=== PATIENT | female | born 1990 | race American Indian/Alaskan Native ===

== ENCOUNTER 2021-05-09 09:40 | Emergency (ER) | payer OTHER ==
[2021-05-09 10:08] VITALS: BP 142/81
--- NOTE | 2021-05-09 10:35 | Emergency Department Report ---
ED Female HPI - General Chief complaint: Vaginal Bleeding Stated complaint: .BLEEDING + TEST Time Seen by Provider: 05/09/21 10:17 Source: patient Mode of arrival: Ambulatory Limitations: No Limitations - History of Present Illness Initial comments: Patient presents with vaginal bleeding. She states that her last menstrual cycle was 26 March. That was normal menstrual cycle for her. She states that she did 3 test at home because she was late and they were all 3+. This morning she woke up with some suprapubic discomfort and some brown vaginal discharge. 1 hour later, she had more severe suprapubic discomfort as well as vaginal bleeding. She decided to come here for evaluation. She has been one time before. This would make her a . She did not have any problems or complications with her first . She did not require RhoGam for her first . Pain is only in the suprapubic area. It is not aggravated or alleviated by anything that she is determined. She has never had PID. She has never had a tubal . She does not have an IUD in place. - Related Data Allergies Allergy/AdvReac Type Severity Reaction Status Date / Time No Known Allergies Allergy Verified 05/09/21 10:05 ED Review of Systems ROS: Stated complaint: .BLEEDING + TEST Other details as noted in HPI Comment: All other systems reviewed and negative Constitutional: denies: fever Eyes: denies: eye pain ENT: denies: throat pain Respiratory: denies: cough Cardiovascular: denies: chest pain Endocrine: denies: unexplained weight loss Gastrointestinal: as per HPI Genitourinary: denies: dysuria Musculoskeletal: denies: back pain Skin: denies: rash Neurological: denies: headache Hematological/Lymphatic: denies: easy bruising ED Past Medical Hx - Past Medical History Previous Medical History?: No - Surgical History Past Surgical History?: No - Family History Family history: no significant ED Physical Exam - General Limitations: No Limitations General appearance: alert, in no apparent distress, anxious - Head Head exam: Present: atraumatic, normocephalic, normal inspection - Eye Eye exam: Present: normal appearance. Absent: scleral icterus - ENT ENT exam: Present: normal exam, normal orophraynx, mucous membranes moist - Neck Neck exam: Present: normal inspection. Absent: meningismus - Respiratory Respiratory exam: Present: normal lung sounds bilaterally. Absent: respiratory distress - Cardiovascular Cardiovascular Exam: Present: regular rate, normal rhythm - GI/Abdominal GI/Abdominal exam: Present: soft. Absent: distended, tenderness - Extremities Exam Extremities exam: Present: normal capillary refill. Absent: pedal edema - Back Exam Back exam: Absent: CVA tenderness (R), CVA tenderness (L) - Neurological Exam Neurological exam: Present: alert, oriented X3. Absent: motor sensory deficit - Psychiatric Psychiatric exam: Present: normal affect, normal mood - Skin Skin exam: Present: warm, dry ED Course Vital Signs 05/09/21 10:06 Temperature 98.4 F Pulse Rate 63 Respiratory 16 Rate Blood Pressure 142/81 [Left] O2 Sat by Pulse 97 Oximetry - Reevaluation(s) Reevaluation #1: 05/09/21 10:35 Labs and ultrasound were ordered. ED Medical Decision Making - Lab Data Result diagrams: 05/09/21 10:32 - Medical Decision Making Ultrasound was discussed with the tech. There is no intrauterine seen. Patient's quant is only 9. It would be too low to see an intrauterine . I suspect that the patient will be miscarrying, but we cannot determine that for certain. She will need serial hCG and ultrasound evaluations. She can be followed up by gynecology. There is no unilateral pain that would suggest ectopic . She certainly does not appear to be septic or toxic. She is not anemic. She does not require RhoGam. There is no peritoneal findings. Critical Care Time: No Critical care attestation.: If time is entered above; I have spent that time in minutes in the direct care o f this critically ill patient, excluding procedure time. ED Disposition Clinical Impression: Threatened Disposition: 01 HOME / SELF CARE / HOMELESS Is pt being admited?: No Does the pt Need Aspirin: No Condition: Stable Instructions: Threatened Miscarriage, Vaginal Bleeding During , First Trimester Additional Instructions: Drink plenty water. Use Tylenol for pain and fever. Follow-up with your regular doctor. Follow-up with your electrician sound for recheck. Avoid any type of vaginal penetration until you have seen your electrician sound. Referrals: PRIMARY MD CORTNEY [Referring] - 3-5 Days KEVIN SCHAFER MD [Staff Physician] - 3-5 Days
[2021-05-09 11:21] LABS: Hemoglobin 13.5 gm/dl (10.1-14.3); Mean Corpuscular HGB Conc 35 % (30-34); Mean Corpuscular Volume 78 fl (79-97); Platelet Count 325 K/mm3 (140-440); Red Blood Count 5.01 M/mm3 (3.65-5.03); Red Cell Distribution Width 14.1 % (13.2-15.2)
--- NOTE | 2021-05-09 12:09 | Ultrasound Report ---
TRANSABDOMINAL AND TRANSVAGINAL OB PELVIC ULTRASOUND INDICATION / CLINICAL INFORMATION: Lower abdominal/pelvic pain and vaginal bleeding. COMPARISON: None available. FINDINGS: Transabdominal: The uterus measures approximately 8.7 x 4.85 4.5 cm. The endometrial stripe measures 1.5 cm AP. I do not identify an intrauterine . Neither ovary is seen. No abnormal mass or fl uid collection is present. The urinary bladder is unremarkable. Transvaginal: The uterus measures approximately 8.6 x 3.5 x 4.6 cm. The endometrial stripe measures 1 .9 cm AP. The endometrial cavity is empty. The right ovary measures 2.7 x 1.5 x 2.3 cm and the left o vary 2.0 x 1.3 x 1.5 cm. There is normal blood flow to both ovaries on Doppler exam. No abnormal mass or fluid collection is seen. IMPRESSION: No evidence of intrauterine or extrauterine . Signer Name: Jason Mccarty MD Signed: 05/09/2021 12:04 PM Workstation Name: [id number]
== END 2021-05-09 13:33 | disposition home or self-care (01) ==
LOC: ED 09:40
DX: O20.0 Threatened abortion (principal)
CPT/HCPCS: 36415; 76801; 76817; 84702; 85027; 86900; 86901; 99284